=== PATIENT | male | born 1950 | race Caucasian/White ===

== ENCOUNTER 2018-11-04 15:57 | Outpatient (CLI) | payer OTHER | END 2018-11-04 16:03 | disposition home or self-care (01) | LOC: LAB 15:57 | DX: D50.8 Other iron deficiency anemias (principal); D51.8 Other vitamin B12 deficiency anemias; R97.20 Elevated prostate specific antigen [PSA] ==

== ENCOUNTER 2018-11-09 11:13 | Outpatient (CLI) | payer OTHER | END 2018-11-09 11:24 | disposition home or self-care (01) | LOC: LAB 11:13 | DX: C7A.012 Malignant carcinoid tumor of the ileum (principal); Z51.81 Encounter for therapeutic drug level monitoring ==

== ENCOUNTER 2018-11-17 09:26 | Outpatient (CLI) | payer OTHER ==
[2018-11-18] MEDS ORDERED: HYZAAR 100-12.1 EACH (16:07)
[2018-11-18] MEDS ORDERED: INTESTINEX680 M1 PO (21:12)
[2018-11-18] MEDS ORDERED: LEVSIN/SL0.125 MG SL (21:12)
[2018-11-18] MEDS ORDERED: PEPCID AC20 MG PO (21:12)
[2018-11-18] MEDS ORDERED: KETO10TA2 PO (21:12)
== END 2018-11-17 09:28 | disposition home or self-care (01) ==
LOC: TOM 09:26
DX: C7A.012 Malignant carcinoid tumor of the ileum (principal); I10 Essential (primary) hypertension
CPT/HCPCS: 74178; Q9965

== ENCOUNTER 2018-11-18 16:00 | Emergency (ER) | payer OTHER ==
[~2018-11-18] VITALS: Ht 170.2 cm; Wt 76.2 kg
[2018-11-18] MEDS ORDERED: HYZAAR 100-12.1 EACH (16:07)
[2018-11-18] MEDS ORDERED: INTESTINEX680 M1 PO (21:12)
[2018-11-18] MEDS ORDERED: KETO10TA2 PO (21:12)
[2018-11-18] MEDS ORDERED: PEPCID AC20 MG PO (21:12)
[2018-11-18] MEDS ORDERED: LEVSIN/SL0.125 MG SL (21:12)
== END 2018-11-18 21:57 | disposition home or self-care (01) ==
LOC: ER 16:00
DX: K30 Functional dyspepsia (principal)